=== PATIENT | male | born 1965 | race Caucasian/White ===

== ENCOUNTER 2020-08-16 10:44 | Emergency (ER) | payer MEDICARE, SELFPAY ==
--- NOTE | 2020-08-16 11:53 | ED.GENADULT ---
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 Onset (ago): day(s) Relieving factors: none Treatments prior to arrival: none Related Data Home Medications Medication Instructions Recorded Confirmed albuterol sulfate 90 mcg/actuation 2 puff INHALATION .4 times a day 07/13/20 07/18/20 aerosol inhaler PRN g hydroxyzine HCl 50 mg tablet 100 mg PO BEDTIME 07/13/20 07/18/20 ipratropium 0.5 mg-albuterol 3 mg ml INHALATION 07/13/20 07/18/20 (2.5 mg base)/3 mL nebulization soln topiramate 50 mg tablet 50 mg PO BEDTIME 07/13/20 07/18/20 venlafaxine 75 mg tablet 75 mg PO DAILY 07/13/20 07/18/20 trazodone 150 mg tablet mg PO BEDTIME tab 07/18/20 07/18/20 Previous Rx's Medication Instructions Recorded baclofen 20 mg tablet 20 mg PO TID PRN 30 Days #90 tab 06/30/20 gabapentin 100 mg capsule 100 mg PO TID #90 cap 06/30/20 azithromycin 250 mg tablet See Rx Instructions PO .COMPLEX #6 07/13/20 tab clonidine HCl 0.2 mg tablet 0.2 mg PO BID PRN #60 tab 07/21/20 oxycodone-acetaminophen 5 mg-325 1 tab PO BID PRN 28 Days #56 tab 07/21/20 mg tablet theophylline 300 mg 300 mg PO Q12H #60 ea 07/28/20 tablet,extended release,12 hr Allergies Allergy/AdvReac Type Severity Reaction Status Date / Time bacitracin [Bacitracin] Allergy Unknown REDNESS Verified 07/18/20 17:48 AND RASH lithium [[place]] Allergy Unknown UNKNOWN Verified 07/18/20 17:48 Sulfa (Sulfonamide Allergy Unknown Unknown Verified 07/18/20 17:48 Antibiotics) Review of Systems Review of Systems: Constitutional: No Weight loss, No Fever, No Chills, No Night Sweats, No Fatigue, No Malaise ENT/Mouth: No Hearing loss, No Ear Pain, No Nasal Congestion, No Sinus Pain, No Hoarseness, No sore throat, No Rhinorrhea, No Swallowing Difficulty Eyes: No Eye Pain, No Swelling, No Redness, No Foreign Body, No Discharge, No Vision Changes Cardiovascular: No Chest Pain, No SOB, No Dyspnea on Exertion, No Orthopnea, No Edema, No Palpitations Respiratory: No Cough, No Sputum, No Wheezing, No Smoke Exposure, No Dyspnea Gastrointestinal: No Nausea, No Vomiting, No Diarrhea, No Constipation, No abdominal Pain, No Hematochezia, No Melena Genitourinary:No Urinary Incontinence, No Urgency, No Flank Pain, No Urinary Flow Changes, No Hesitancy Musculoskeletal: No joint pain, No Myalgias, No Joint Swelling Skin: No Skin Lesions, No rash Neuro: No Weakness, No Numbness, No Paresthesias, No Loss of Consciousness, No Dizziness, No Headache Heme/Lymph: No Bruising, No Bleeding,No Lymphadenopathy Endocrine: No Polyuria, No Polydipsia, No Temperature Intolerance Yes all other systems are reviewed and are negative [facility] Past Medical History Medical History Anxiety COPD exacerbation Depression Essential tremor Insomnia Lumbar degenerative disc disease Migraine Mixed hyperlipidemia Obesity (BMI 30-39.9) Obstructive sleep apnea Smoker Surgical History No pertinent past surgical history Family History Family History Father No problems noted. Mother No problems noted. Social History Social History (Updated 07/18/20 @ 17:49 by Imtiaz Saucedo MD) Smoking Status: Current every day smoker Tobacco Type: Cigarette Cigarettes Per Day: 10 Advance Directives: No Advance Directives Information Provided: No Physical Exam Vital Signs: Vital Signs: Reviewed Const: General: cooperative and healthy appearing; No acute distress or intoxicated appearing Nutritional Appearance: average body habitus Orientation/consciousness: patient oriented x3 HENMT: Head: Yes normal to inspection Ears: hearing grossly normal bilaterally Eyes: General: appearance normal, both eyes and all related structures Visual Bhatti: normal visual bhatti by confrontation Neck: Neck: Yes normal visual inspection and No tender Thyroid: Thyroid normal Chest: Chest palpation & inspection: normal inspection of the chest Resp: Effort & Inspection: normal respiratory effort Cardio: Jugular venous distension: no JVD Skin: General skin exam: no rashes or lesions noted Neuro: General: patient oriented x3 Extrem: General: Yes normal to inspection Course Course Course Narrative: COVID-19 test done. Clear precaution follow-up instructions provided. Verbalized understanding. Stable for discharge Discharge Plan Discharge Clinical Impression: Encounter for laboratory testing for COVID-19 virus Patient Disposition: Home, Self-Care Instructions: Normal Exam (ED) Additional Instructions: We have tested for COVID-19 this test may take up to 3-5 days result Follow home instructions reviewed Social distancing Self-isolation Return instructions provided Thank you Prescriptions: No Action baclofen 20 mg tablet 20 mg PO TID PRN (Reason: muscle spasm) 30 Days Qty: 90 RF: 3 gabapentin 100 mg capsule 100 mg PO TID Qty: 90 RF: 0 oxycodone-acetaminophen 5-325 mg tablet 1 tab PO BID PRN (Reason: pain) 28 Days Qty: 56 RF: 0 clonidine HCl 0.2 mg tablet 0.2 mg PO BID PRN (Reason: for anxiety) Qty: 60 RF: 0 theophylline 300 mg tablet extended release 12 hr 300 mg PO Q12H Qty: 60 RF: 0 hydroxyzine HCl 50 mg tablet 100 mg PO BEDTIME RF: 0 topiramate 50 mg tablet 50 mg PO BEDTIME RF: 0 ipratropium-albuterol 0.5 mg-3 mg(2.5 mg base)/3 mL solution for nebulization inhalation RF: 0 albuterol sulfate [Ventolin HFA] 90 mcg/actuation HFA aerosol inhaler 2 puff inhalation .4 times a day PRNRF: 0 venlafaxine 75 mg tablet 75 mg PO DAILY RF: 0 azithromycin 250 mg tablet See Rx Instructions PO .COMPLEX Qty: 6 RF: 0 trazodone 150 mg tablet PO BEDTIME RF: 0 Referrals: Imtiaz Saucedo MD [Primary Care Provider] - 1 week (As needed)
[2020-08-16 11:57] VITALS: BP 122/66; PULSE 85; RESP 20; TEMP 36.7; O2SAT 93; BMI 36.6
== END 2020-08-16 12:16 | disposition home or self-care (01) ==
PROVIDERS: Nurse Practitioner Primary Care; Emergency Provider Internal Medicine; PCP Internal Medicine
DX: Z20.828 Contact with and (suspected) exposure to other viral communicable diseases (principal); F17.210 Nicotine dependence, cigarettes, uncomplicated; Z71.6 Tobacco abuse counseling; Z79.899 Other long term (current) drug therapy
CPT/HCPCS: 99283; U0003

== ENCOUNTER 2020-10-01 08:38 | Outpatient (REF) | payer MEDICARE, SELFPAY ==
[2020-10-01 11:22] LABS: MANUAL DIFF FLAG NO
[2020-10-01 11:52] LABS: Basophils Absolute Auto 0.1 X10*3/uL (0.0-0.2); Basophils Percent Auto 0.6 % (0-2); Eosinophils Absolute Auto 0.3 X10*3/uL (0.0-0.4); Eosinophils Percent Auto 2.4 % (0-4); Hematocrit 49.2 % (42-52); Hemoglobin 16.2 g/dl (14.0-18.0); Imm Gran Abs Auto 0.05 X10*3/uL (0.00-0.03); Imm Gran Pct Auto 0.5 % (0.0-0.4); Lymphocytes Absolute Auto 4.4 X10*3/uL (1.2-4.9); Lymphocytes Percent Auto 39.8 % (20-40); Mean Corpuscular HGB Conc 32.9 g/dl (31.0-36.0); Mean Corpuscular Hemoglobin 30.6 pg (27.0-33.0); Mean Platelet Volume 10.6 fL (9.4-12.4); Monocytes Absolute Auto 0.7 X10*3/uL (0.1-1.2); Monocytes Percent Auto 6.4 % (2-11); Neutrophils Absolute Auto 5.6 X10*3/uL (2.0-8.3); Neutrophils Percent Auto 50.3 % (45-73); Platelet Count 317 X10*3/uL (160-400); Red Blood Count 5.29 X10*6/uL (4.60-5.80); Red Cell Distribution Width 13.9 % (11.0-16.0)
[2020-10-01 12:20] LABS: Alanine Aminotransferase 16 U/L (0-40); Albumin Level 4.6 g/dL (3.5-5.0); Alkaline Phosphatase 86 U/L (39-117); Anion Gap 13 (12-20); Aspartate Amino Transferase 12 U/L (5-37); Bilirubin Total 0.4 mg/dL (0.0-1.0); Blood Urea Nitrogen 12 mg/dL (9-16); Calcium 9.2 mg/dL (8.4-10.2); Carbon Dioxide 28 mmol/L (22-29); Chloride 105 mmol/L (96-108); Cholesterol 251 mg/dL; Estimated Glomerular Filt Rate > 60; Glucose Fasting 134 mg/dL (60-99); HDL Cholesterol 33 mg/dL; LDL Cholesterol Calculated 168 mg/dl; Potassium 4.5 mmol/l (3.3-5.1); Sodium 141 mmol/L (135-145); Total Protein 7.4 g/dL (6.5-8.0); Triglycerides 252 mg/dL
[2020-10-01 12:26] LABS: TSH reflex Free T4 0.84 mIU/mL (0.32-4.0)
[2020-10-01 14:07] LABS: Glucose Urine UA NEG (NEG); Leukocyte Esterase Urine NEG (NEG); Nitrite Urine NEG (NEG); PH 5.5 (5.0-8.0); Urine Blood NEG (NEG); Urine Ketones NEG (NEG); Urine Protein NEG (NEG-TRACE)
[2020-10-01 14:20] LABS: Appearance Urine CLEAR; Color Urine YELLOW
== END 2020-10-01 08:39 | disposition home or self-care (01) ==
LOC: HO.HMGCLDS 08:38
PROVIDERS: PCP Internal Medicine; Visit Provider Internal Medicine
DX: J44.1 Chronic obstructive pulmonary disease with (acute) exacerbation (principal); F17.200 Nicotine dependence, unspecified, uncomplicated; E78.2 Mixed hyperlipidemia; E66.9 Obesity, unspecified; M51.36 Other intervertebral disc degeneration, lumbar region
CPT/HCPCS: 36415; 80053; 80061; 81003; 84443; 85025

== ENCOUNTER 2021-11-29 12:13 | Outpatient (REF) | payer MEDICARE, SELFPAY ==
--- NOTE | ~2021-11-29 | XR_ITS ---
EXAMINATION: XR CHEST CLINICAL INFORMATION: COPD. COMPARISON: None TECHNIQUE: 2 views of the chest were obtained. FINDINGS: The lungs are well-expanded with patchy density in the left lung base retrocardiac area suggestive of infiltrate and/or atelectasis. Mild blunting of left CP angle. Rest of lungs are clear. The heart size and progress clarities normal. No gross bony abnormality seen. XR/XR chest 2V IMPRESSION: Patchy opacity left lung base likely infiltrate or atelectasis. Mild blunting of left CP angle question pleural thickening or effusion.
== END 2021-11-29 12:14 | disposition home or self-care (01) ==
LOC: HO.HMGCX 12:13
PROVIDERS: Visit Provider Internal Medicine
DX: J44.1 Chronic obstructive pulmonary disease with (acute) exacerbation (principal)
CPT/HCPCS: 71046

== ENCOUNTER → 2022-04-03 15:11 | Outpatient (BNVA) | payer MEDICARE, SELFPAY | PROVIDERS: PCP Internal Medicine; Visit Provider Internal Medicine | DX: J44.9 Chronic obstructive pulmonary disease, unspecified (principal); E66.9 Obesity, unspecified; Z68.35 Body mass index [BMI] 35.0-35.9, adult; G47.33 Obstructive sleep apnea (adult) (pediatric); F51.01 Primary insomnia; F17.210 Nicotine dependence, cigarettes, uncomplicated; Z79.899 Other long term (current) drug therapy | CPT/HCPCS: 99202 ==

== ENCOUNTER 2022-05-25 14:09 | Emergency (ER) | payer MEDICARE, OTHER, SELFPAY ==
--- NOTE | ~2022-05-25 | XR_ITS ---
EXAMINATION: XR CHEST CLINICAL INFORMATION: Chest pain. COMPARISON: 11/29/2021 chest radiographs. TECHNIQUE: 2 views of the chest were obtained. FINDINGS: There is generalized hyperinflation. The lungs are clear. There are no pleural effusions. The heart and mediastinal structures are unremarkable. XR/XR chest 2V IMPRESSION: Generalized hyperinflation is nonspecific, but can be seen with COPD. No acute cardiopulmonary process. Previously seen left basilar findings have resolved.
[2022-05-25 14:41] VITALS: BP 139/82; PULSE 80; RESP 16; TEMP 37.1; O2SAT 88; BMI 34.9
[2022-05-25 14:43] VITALS: O2SAT 94
--- NOTE | 2022-05-25 14:44 | ECG_ITS ---
Test Reason : sob Blood Pressure : / mmHG Vent. Rate : 081 BPM Atrial Rate : 081 BPM P-R Int : 190 ms QRS Dur : 092 ms QT Int : 386 ms P-R-T Axes : 076 107 033 degrees QTc Int : 448 ms Normal sinus rhythm Rightward axis Borderline ECG When compared with ECG of 13-JUN-2017 18:43, Heart rate has decreased Referred By: Generic ED Physician Electronically Signed By:SHERIF MUJICA
[2022-05-25 15:03] LABS: MANUAL DIFF FLAG NO
[2022-05-25 15:07] LABS: Basophils Absolute Auto 0.1 X10*3/uL (0.0-0.2); Basophils Percent Auto 0.7 % (0-2); Eosinophils Absolute Auto 0.3 X10*3/uL (0.0-0.4); Eosinophils Percent Auto 2.4 % (0-4); Hemoglobin 18.6 g/dl (14.0-18.0); Imm Gran Abs Auto 0.03 X10*3/uL (0.00-0.03); Imm Gran Pct Auto 0.3 % (0.0-0.4); Lymphocytes Absolute Auto 3.6 X10*3/uL (1.2-4.9); Lymphocytes Percent Auto 34.7 % (20-40); Mean Corpuscular Hemoglobin 30.8 pg (27.0-33.0); Mean Corpuscular Volume 93.2 fL (80.0-98.0); Mean Platelet Volume 9.4 fL (9.4-12.4); Monocytes Absolute Auto 0.6 X10*3/uL (0.1-1.2); Monocytes Percent Auto 5.8 % (2-11); Neutrophils Absolute Auto 5.9 x10*3/uL (2.0-8.3); Neutrophils Percent Auto 56.1 % (45-73); Platelet Count 207 X10*3/uL (160-400); Red Blood Count 6.04 X10*6/uL (4.60-5.80); Red Cell Distribution Width 14.6 % (11.0-16.0); White Blood Count 10.5 X10*3/uL (4.8-10.8)
[2022-05-25 15:16] LABS: Hematocrit 56.3 % (42.0-52.0)
[2022-05-25 15:19] LABS: Anion Gap 16 (12-20); Blood Urea Nitrogen 13 mg/dL (9-16); Calcium 8.7 mg/dL (8.4-10.2); Carbon Dioxide 25 mmol/L (22-29); Chloride 103 mmol/L (96-108); Creatinine Clr Calc Pharmacy 129.9; Estimated Glomerular Filt Rate > 60; Glucose Random 115 mg/dL (60-115); Potassium 4.5 mmol/L (3.3-5.1); Sodium 139 mmol/L (135-145)
[2022-05-25 15:25] LABS: Troponin-I High Sensitivity 4.2 ng/L (<3.5-35.0)
== END 2022-05-25 21:28 | disposition left against medical advice (07) ==
PROVIDERS: Emergency Provider Emergency Medicine; PCP Internal Medicine
DX: J44.9 Chronic obstructive pulmonary disease, unspecified (principal); R06.02 Shortness of breath; Z79.899 Other long term (current) drug therapy
CPT/HCPCS: 36415; 71046; 80048; 84484; 85025; 93005; 99282; 99283

== ENCOUNTER → 2022-06-07 09:56 | Outpatient (BNVA) | payer MEDICARE, SELFPAY | PROVIDERS: PCP Internal Medicine; Visit Provider Internal Medicine | DX: J44.9 Chronic obstructive pulmonary disease, unspecified (principal); G47.34 Idiopathic sleep related nonobstructive alveolar hypoventilation; G47.33 Obstructive sleep apnea (adult) (pediatric); J30.9 Allergic rhinitis, unspecified; E66.9 Obesity, unspecified; D75.1 Secondary polycythemia; F17.210 Nicotine dependence, cigarettes, uncomplicated; Z79.899 Other long term (current) drug therapy; Z99.81 Dependence on supplemental oxygen | CPT/HCPCS: 99212 ==

== ENCOUNTER 2022-06-12 08:37 | Outpatient (REF) | payer MEDICARE, SELFPAY ==
--- NOTE | 2022-06-12 17:26 | PFT_ITS ---
FLOWS: FEV1 28% of predicted at 1.07 L. FVC 60% of predicted at 3.01 L. FEV1 to FVC ratio of 0.36. Positive bronchodilator response. LUNG VOLUMES: Total lung capacity 85% of predicted at 6.05 L. Residual volume 187% of predicted at 4.10 L. Slow vital capacity 39% of predicted at 1.95 L. Expiratory reserve volume 33% of predicted at 0.50 L. Diffusion capacity is moderately decreased. IMPRESSION: A very severe obstructive ventilatory defect with positive bronchodilator response. Increased residual volume suggests air trapping. Decreased expiratory reserve volume suggests extrathoracic restriction likely secondary to abdominal obesity. Decreased diffusion capacity suggests emphysema. MD LISA Campuzano/MODL / [id number]
== END 2022-06-12 08:38 | disposition home or self-care (01) ==
LOC: HO.RESP 08:37
PROVIDERS: PCP Internal Medicine; Visit Provider Internal Medicine
DX: R06.00 Dyspnea, unspecified (principal); J44.9 Chronic obstructive pulmonary disease, unspecified; E66.9 Obesity, unspecified; F17.200 Nicotine dependence, unspecified, uncomplicated
CPT/HCPCS: 94060; 94727; 94729

== ENCOUNTER → 2022-07-31 10:45 | Outpatient (BNVA) | payer MEDICARE, SELFPAY | PROVIDERS: PCP Internal Medicine; Visit Provider Internal Medicine | DX: J44.9 Chronic obstructive pulmonary disease, unspecified (principal); G47.34 Idiopathic sleep related nonobstructive alveolar hypoventilation; E66.9 Obesity, unspecified; G47.33 Obstructive sleep apnea (adult) (pediatric); F17.210 Nicotine dependence, cigarettes, uncomplicated; Z68.36 Body mass index [BMI] 36.0-36.9, adult | CPT/HCPCS: 99212 ==

== ENCOUNTER → 2022-10-02 10:50 | Outpatient (BNVA) | payer MEDICARE, SELFPAY | PROVIDERS: PCP Internal Medicine; Visit Provider Internal Medicine | DX: J44.9 Chronic obstructive pulmonary disease, unspecified (principal); G47.34 Idiopathic sleep related nonobstructive alveolar hypoventilation; G47.33 Obstructive sleep apnea (adult) (pediatric); E66.9 Obesity, unspecified; F17.210 Nicotine dependence, cigarettes, uncomplicated; Z68.36 Body mass index [BMI] 36.0-36.9, adult | CPT/HCPCS: 99212 ==

== ENCOUNTER 2022-10-20 09:47 | Emergency (ER) | payer MEDICARE, SELFPAY ==
[2022-10-20] VITALS (8 sets, daily range): BP systolic 119–162; BP diastolic 72–93; PULSE 74–87; RESP 17–19; TEMP 36.6–37.1; O2SAT 92–99; BMI 35.9
--- NOTE | ~2022-10-20 | XR_ITS ---
EXAMINATION: XR CHEST CLINICAL INFORMATION: Shortness of breath, chest pain, cough COMPARISON: Chest radiographs 05/25/2022, 11/29/2021 TECHNIQUE: 2 views of the chest were obtained. FINDINGS: There is hyperinflation/COPD. No lobar or segmental airspace consolidation or groundglass opacity or effusion. The heart is normal in size. The vascularity is normal. The hilar and mediastinal contours and visualized bony structures are stable. XR/XR chest 2V IMPRESSION: Hyperinflation/COPD. No acute intrathoracic disease.
--- NOTE | 2022-10-20 12:08 | ED_ITS ---
HPI - SOB/Dyspnea General Chief Complaint: Upper Respiratory Symptoms Stated Complaint: COPD exacerbation Time Seen by Provider: 10/20/22 11:28 Source: patient Mode of arrival: ambulatory Limitations: no limitations History of Present Illness HPI Narrative: Patient is a 57-year-old male presents to the emergency department for evaluation of COPD exacerbation past few days, increased sputum, no change in color, increased shortness of breath. Baseline 2-3 L via nasal cannula. Went to [facility] urgent care today, referred to the emergency department for further evaluation. Denies fevers, chills, dizziness, sore throat, chest pain, nausea, vomiting, abdominal pain. Related Data Previous Rx's Medication Instructions Recorded baclofen 20 mg tablet 20 mg PO TID PRN muscle spasm 30 06/21/22 days #90 tabs hydroxyzine HCl 50 mg tablet 100 mg PO BEDTIME #60 tabs 07/25/22 topiramate 50 mg tablet 50 mg PO BEDTIME #90 tabs 07/25/22 gabapentin 300 mg capsule 300 mg PO TID #90 caps 08/22/22 trazodone 150 mg tablet 450 mg PO BEDTIME #270 tabs 09/05/22 Breo Ellipta 200 mcg-25 mcg/dose 1 inh inhalation DAILY #60 ea 09/15/22 powder for inhalation (fluticasone furoate-vilanterol) albuterol sulfate 90 mcg/actuation 2 puff inhalation .4 times a day 09/15/22 aerosol inhaler (Ventolin HFA) PRN shortness of breath or wheezing #8.5 grams atorvastatin 10 mg tablet 10 mg PO BEDTIME 90 days #90 tabs 09/15/22 ipratropium 0.5 mg-albuterol 3 mg 3 ml inhalation Q6-8H PRN 09/15/22 (2.5 mg base)/3 mL nebulization shortness of breath or wheezing 30 soln days #180 mL venlafaxine 75 mg tablet 150 mg PO DAILY 30 days #60 tabs 09/15/22 clonidine HCl 0.2 mg tablet 0.2 mg PO BID PRN for anxiety #60 09/22/22 tabs theophylline 300 mg 300 mg PO Q12H #60 tabs 09/22/22 tablet,extended release,12 hr clonazepam 1 mg tablet 1 mg PO TID PRN anxiety 30 days 09/26/22 #90 tabs doxycycline hyclate 100 mg capsule 100 mg PO BID #14 caps 10/20/22 prednisone 20 mg tablet 40 mg PO BID #8 tabs 10/20/22 Allergies Allergy/AdvReac Type Severity Reaction Status Date / Time bacitracin [Bacitracin] Allergy Unknown REDNESS Verified 10/02/22 11:30 AND RASH lithium [[place]] Allergy Unknown UNKNOWN Verified 10/02/22 11:30 Sulfa (Sulfonamide Allergy Unknown Unknown Verified 10/02/22 11:30 Antibiotics) Review of Systems Review of Systems: Constitutional: No fever. No chills. No weakness. No fatigue. ENT/ Mouth: No Ear Pain, positive Nasal Congestion, no sore throat, No Rhinorrhea, No Swallowing Difficulty Skin: No rash or itching. Cardiovascular: No chest pain. No palpitations. Respiratory: Positive shortness of breath. Positive cough. Positive sputum production. Gastrointestinal: No nausea. No vomiting. No diarrhea. No abdominal pain. Genitourinary: No burning micturition. No urinary frequency. Neurologic: No headache. No dizziness. No syncope. No numbness or tingling in the extremities. Musculoskeletal: No muscle pain. No back pain. No joint pain or stiffness. Yes all other systems are reviewed and are negative PMFSH Past Medical History Attestation statement: The following information was validated with the patient. Source: old records reviewed Medical History Allergic rhinitis Anxiety COPD (chronic obstructive pulmonary disease) COPD exacerbation Depression Essential tremor Impaired fasting glucose Insomnia Lumbar degenerative disc disease Migraine Mixed hyperlipidemia Nocturnal hypoxemia Obesity (BMI 30-39.9) Obstructive sleep apnea Polycythemia Smoker Surgical History No pertinent past surgical history Family History Family History Father No problems noted. Mother No problems noted. Social History Social History Housing: Apartment Alcohol intake: never Patient Tobacco Use Status: Current everyday Tobacco user Cigarettes Per Day: 20 Smoked in Last 30 Days: Yes e-Cigarette/Vaping Use: Never Used Second Hand Smoke Exposure: Yes Use of substances other than those prescribed or required for medical reasons: No Advance Directives: No Advance Directives Information Provided: Yes service: No Current occupational status: disabled Cognitive needs: No Hearing needs: No Vision needs: No Physical Exam Vital Signs: Vital Signs: Last Vital Signs Temp 98.3 F 10/20/22 11:51 Pulse 83 10/20/22 15:06 Resp 18 10/20/22 15:06 BP 132/80 10/20/22 15:06 Pulse Ox 98 10/20/22 15:06 O2 Del Method 10/20/22 15:06 O2 Flow Rate 2.5 10/20/22 15:06 Oxygen Flow Rate 2.5 10/20/22 10:58 BMI result Body Mass Index 35.9 Appearance: Alert.?Oriented to person, place and time. No acute distress.?Normal affect. Eyes: Pupils equal, round and reactive to light.? ENT: TM normal bilaterally. Pharynx normal.?? Neck: Normal inspection.? Neck supple.??No cervical adenopathy CVS: Heart sounds normal. Normal heart rate and rhythm.? Pulses normal.?? Respiratory: No respiratory distress.? Lung sounds type bilaterally, with expiratory wheezing. Abdomen: Soft and non-tender. Normoactive bowel sounds. Skin: Skin warm and dry.? Normal skin color.? ? Extremities: No lower extremity edema.? Neuro: Moves all extremities spontaneously. Sensation intact bilaterally. No motor deficits. Ambulates with normal steady gait. Course Reevaluation(s) Reevaluation #1: Patient ambulatory without oxygen, noted to be in no distress. No increased work of breathing. O2 saturations have remained at 93% on 2 L while at rest. Per patient his baseline is 88-92%. CBC reveals a mild leukocytosis without shift, mild hypernatremia 147, I suspect this is due to mild dehydration, we discussed adequate fluid intake. COVID-19/influenza testing is negative. Improvement in lung sounds after DuoNeb nebulizer and Solu-Medrol. Chest x-ray without any acute cardiopulmonary process, not appear consistent with pneumonia at this time. Symptom etiology most consistent with COPD exacerbation, I discussed these findings with patient, patient to be discharged home, will send prescription for oral prednisone and antibiotic to patient's pharmacy. We discussed worrisome signs and symptoms that would warrant re-evaluation in the emergency department. All questions were answered. Ambulatory with steady gait, discharged home with son who is at bedside. Medications Administered Discontinued Medications Generic Name Dose Route Start Last Admin Trade Name Mell PRN Reason Stop Dose Admin Albuterol Sulfate 7.5 mg 10/20/22 12:58 10/20/22 13:19 Albuterol Sulfate (0.083%) 2.5 Mg/3 Ml Vial.Neb INHALE 10/20/22 12:59 7.5 mg ONCE ONE Administration Albuterol/Ipratropium 3 ml 10/20/22 12:58 10/20/22 13:15 Albuterol/Iprat 2.5/0.5mg 3 Ml Ampul.Neb INHALE 10/20/22 12:59 3 ml ONCE ONE Administration Methylprednisolone Sodium Succinate 125 mg 10/20/22 12:58 10/20/22 15:05 Methylprednisolone Sod Succ 125 Mg/2 Ml Vial IVPUSH 10/20/22 12:59 125 mg ONCE ONE Administration Medical Decision Making Medical Decision Making [facility] Narrative: Patient is a 57-year-old male with past medical history of anxiety, COPD, diabetes, hyperlipidemia, obstructive sleep apnea on CPAP, polycythemia presented to emergency department for evaluation of shortness of breath and incr eased sputum production. Reports symptoms unrelieved with home nebulizer. At the time my examination is overall well appearing, maintaining O2 saturation on baseline supplemental O2 via nasal cannula. Speaking clear full sentences. He was noted to ambulate to the bathroom and back to his room without any complication or significant distress. Lung sounds are significantly tight bilaterally with faint expiratory wheezing patient will receive DuoNeb updrafts, Solu-Medrol IV, CBC, CMP, chest x-ray, viral testing, EKG, troponin. Differential Diagnosis Differential Diagnoses: The differential diagnosis associated with the presentation includes (COPD exacerbation, pneumonia, pulmonary embolism, ACS, viral upper respiratory infection, pleural effusion, pneumothorax) Lab Data [facility] Lab Attestation statement: I reviewed the patient's lab results. 10/20/22 13:53 10/20/22 13:53 Labs: Lab Results 10/20/22 10/20/22 10/20/22 Range/Units 13:53 13:53 13:53 WBC 13.2 H (4.8-10.8) X10*3/uL RBC 5.32 (4.60-5.80) X10*6/uL Hgb 16.4 (14.0-18.0) g/dl Hct 51.8 (42.0-52.0) % MCV 97.4 (80.0-98.0) fL MCH 30.8 (27.0-33.0) pg MCHC 31.7 (31.0-36.0) g/dl RDW 13.5 (11.0-16.0) % Plt Count 214 (160-400) X10*3/uL MPV 9.4 (9.4-12.4) fL Immature Gran % (Auto) 0.4 (0.0-0.4) % Neut % (Auto) 51.7 (45-73) % Lymph % (Auto) 37.9 (20-40) % [place] % (Auto) 8.0 (2-11) % Eos % (Auto) 1.5 (0-4) % Baso % (Auto) 0.5 (0-2) % Lymph # (Auto) 5.0 H (1.2-4.9) X10*3/uL [place] # (Auto) 1.1 (0.1-1.2) X10*3/uL Eos # (Auto) 0.2 (0.0-0.4) X10*3/uL Baso # (Auto) 0.1 (0.0-0.2) X10*3/uL Abs Immat Gran (auto) 0.05 H (0.00-0.03) X10*3/uL Absolute Neuts (auto) 6.8 (2.0-8.3) x10*3/uL Absolute Nucleated RBC 0.000 (0.0-0.012) X10*3/uL Nucleated RBC % (auto) 0.0 (0.0-0.2) /100WBC Sodium 147 H (135-145) mmol/L Potassium 3.8 (3.3-5.1) mmol/L Chloride 100 (96-108) mmol/L Carbon Dioxide 38 H (22-29) mmol/L Anion Gap 13 (12-20) BUN 11 (9-16) mg/dL Creatinine 0.81 (0.5-1.4) mg/dL Estim Creat Clear Calc 128.4 Estimated GFR > 60 Random Glucose 136 H (60-115) mg/dL Calcium 8.8 (8.4-10.2) mg/dL Magnesium (1.6-2.6) mg/dL Total Bilirubin 0.3 (0.0-1.0) mg/dL AST 12 (5-37) U/L ALT 20 (0-40) U/L Alkaline Phosphatase 88 (39-117) U/L Troponin I High Sens (<3.5-35.0) ng/L Total Protein 6.7 (6.5-8.0) g/dL Albumin 3.9 (3.5-5.0) g/dL COVID-19 ([facility]) (Negative) COVID-19 Clin Com Influenza Type A ([place]) Negative (Negative) Influenza Type B ([place]) Negative (Negative) Influenza A & B Note See Note 10/20/22 10/20/22 10/20/22 Range/Units 13:53 13:53 13:53 WBC (4.8-10.8) X10*3/uL RBC (4.60-5.80) X10*6/uL Hgb (14.0-18.0) g/dl Hct (42.0-52.0) % MCV (80.0-98.0) fL MCH (27.0-33.0) pg MCHC (31.0-36.0) g/dl RDW (11.0-16.0) % Plt Count (160-400) X10*3/uL MPV (9.4-12.4) fL Immature Gran % (Auto) (0.0-0.4) % Neut % (Auto) (45-73) % Lymph % (Auto) (20-40) % [place] % (Auto) (2-11) % Eos % (Auto) (0-4) % Baso % (Auto) (0-2) % Lymph # (Auto) (1.2-4.9) X10*3/uL [place] # (Auto) (0.1-1.2) X10*3/uL Eos # (Auto) (0.0-0.4) X10*3/uL Baso # (Auto) (0.0-0.2) X10*3/uL Abs Immat Gran (auto) (0.00-0.03) X10*3/uL Absolute Neuts (auto) (2.0-8.3) x10*3/uL Absolute Nucleated RBC (0.0-0.012) X10*3/uL Nucleated RBC % (auto) (0.0-0.2) /100WBC Sodium (135-145) mmol/L Potassium (3.3-5.1) mmol/L Chloride (96-108) mmol/L Carbon Dioxide (22-29) mmol/L Anion Gap (12-20) BUN (9-16) mg/dL Creatinine (0.5-1.4) mg/dL Estim Creat Clear Calc Estimated GFR Random Glucose (60-115) mg/dL Calcium (8.4-10.2) mg/dL Magnesium 2.1 (1.6-2.6) mg/dL Total Bilirubin (0.0-1.0) mg/dL AST (5-37) U/L ALT (0-40) U/L Alkaline Phosphatase (39-117) U/L Troponin I High Sens 5.3 (<3.5-35.0) ng/L Total Protein (6.5-8.0) g/dL Albumin (3.5-5.0) g/dL COVID-19 ([facility]) Negative (Negative) COVID-19 Clin Com See Note Influenza Type A ([place]) (Negative) Influenza Type B ([place]) (Negative) Influenza A & B Note Independent Interpretation I performed an independent interpretation of an: Plain X-Ray (I personally interpreted chest x-ray and agree with radiologist impression) Radiology Impression Discussion of test interpretation with radiology: I have reviewed the radiologist's reading. Radiologist Impression: XR/XR chest 2V IMPRESSION: Hyperinflation/COPD. No acute intrathoracic disease. Independent Historian Clinical information obtained from an independent historian. History obtained from or confirmed by: Other (Daughter is at bed side and confirms history) Prescription Management I considered prescription management with: Antibiotic Chronic Conditions Patient?s care impacted by: Other (COPD) Discharge Plan Discharge Clinical Impression: COPD exacerbation Patient Disposition: Home, Self-Care Instructions: COPD (Chronic Obstructive Pulmonary Disease) (ED) Additional Instructions: As discussed, your x-ray and blood work is overall normal today, testing for COVID and flu were negative. Your symptoms are most consistent with a exacerbation of your COPD. A prescription for steroids was sent to your pharmacy, prednisone, began taking this tomorrow. A prescription for antibiotic, doxycycline, was sent to your pharmacy, please complete this entire course. Continue using your nebulizer at home. Your O2 saturation remained at baseline while in the emergency department, you were able to ambulate without difficulty breathing, and felt comfortable with plan of care for discharge home. You should follow-up with your primary care provider next week. You may return to emergency department with any new or worsening symptoms or concerns. Prescriptions: New doxycycline hyclate 100 mg capsule 100 mg PO BID Qty: 14 0RF prednisone 20 mg tablet 40 mg PO BID Qty: 8 0RF No Action baclofen 20 mg tablet 20 mg PO TID PRN (Reason: muscle spasm) 30 Days Qty: 90 3RF topiramate 50 mg tablet 50 mg PO BEDTIME Qty: 90 0RF hydroxyzine HCl 50 mg tablet 100 mg PO BEDTIME Qty: 60 2RF gabapentin 300 mg capsule 300 mg PO TID Qty: 90 1RF trazodone 150 mg tablet 450 mg PO BEDTIME Qty: 270 0RF clonidine HCl 0.2 mg tablet 0.2 mg PO BID PRN (Reason: for anxiety) Qty: 60 3RF theophylline 300 mg tablet extended release 12 hr 300 mg PO Q12H Qty: 60 3RF clonazepam 1 mg tablet 1 mg PO TID PRN (Reason: anxiety) 30 Days Qty: 90 0RF venlafaxine 75 mg tablet 150 mg PO DAILY 30 Days Qty: 60 3RF atorvastatin 10 mg tablet 10 mg PO BEDTIME 90 Days Qty: 90 1RF albuterol sulfate [Ventolin HFA] 90 mcg/actuation HFA aerosol inhaler 2 puff inhalation .4 times a day PRN (Reason: shortness of breath or wheezing) Qty: 8.5 5RF fluticasone furoate-vilanterol [Breo Ellipta] 200-25 mcg/dose blister with device 1 inh inhalation DAILY Qty: 60 5RF ipratropium-albuterol 0.5 mg-3 mg(2.5 mg base)/3 mL solution for nebulization 3 ml inhalation Q6-8H PRN (Reason: shortness of breath or wheezing) 30 Days Qty: 180 1RF Referrals: Imtiaz Saucedo MD [Primary Care Provider] - Interventions: ED Discharge Assessment Last Done: 10/20/22 17:17 Discharge Date/Time: 10/20/22 17:18
--- NOTE | 2022-10-20 13:02 | ECG_ITS ---
Test Reason : sob Blood Pressure : / mmHG Vent. Rate : 080 BPM Atrial Rate : 080 BPM P-R Int : 192 ms QRS Dur : 094 ms QT Int : 380 ms P-R-T Axes : 077 100 066 degrees QTc Int : 438 ms Poor data quality Normal sinus rhythm Rightward axis When compared with ECG of 25-MAY-2022 14:44, Poor data quality in current ECG precludes serial comparison Referred By: Tamra Schutlz Electronically Signed By:Hermilo Jackson
[2022-10-20] MEDS: Albuterol/Iprat 2.5/0.5MG 3 ML AMPUL.NEB INHALE (13:15)
[2022-10-20] MEDS: Albuterol Sulfate (0.083%) 2.5 MG/3 ML VIAL.NEB 7.5 MG INHALE (13:19)
[2022-10-20 13:59] LABS: MANUAL DIFF FLAG NO
[2022-10-20 14:01] LABS: Basophils Absolute Auto 0.1 X10*3/uL (0.0-0.2); Basophils Percent Auto 0.5 % (0-2); Eosinophils Absolute Auto 0.2 X10*3/uL (0.0-0.4); Eosinophils Percent Auto 1.5 % (0-4); Hematocrit 51.8 % (42.0-52.0); Hemoglobin 16.4 g/dl (14.0-18.0); Imm Gran Abs Auto 0.05 X10*3/uL (0.00-0.03); Imm Gran Pct Auto 0.4 % (0.0-0.4); Lymphocytes Percent Auto 37.9 % (20-40); Mean Corpuscular HGB Conc 31.7 g/dl (31.0-36.0); Mean Corpuscular Hemoglobin 30.8 pg (27.0-33.0); Mean Corpuscular Volume 97.4 fL (80.0-98.0); Mean Platelet Volume 9.4 fL (9.4-12.4); Monocytes Absolute Auto 1.1 X10*3/uL (0.1-1.2); Neutrophils Absolute Auto 6.8 x10*3/uL (2.0-8.3); Neutrophils Percent Auto 51.7 % (45-73); Platelet Count 214 X10*3/uL (160-400); Red Blood Count 5.32 X10*6/uL (4.60-5.80); Red Cell Distribution Width 13.5 % (11.0-16.0); White Blood Count 13.2 X10*3/uL (4.8-10.8)
[2022-10-20 14:12] LABS: COVID-19 Test Negative (Negative); IDNOW Serial# 6674DD1D
[2022-10-20 14:15] LABS: IDNOW Serial# 55D5AD1C; Influenza A Negative (Negative); Influenza B2 Negative (Negative)
[2022-10-20 14:23] LABS: Alanine Aminotransferase 20 U/L (0-40); Albumin Level 3.9 g/dL (3.5-5.0); Alkaline Phosphatase 88 U/L (39-117); Anion Gap 13 (12-20); Aspartate Amino Transferase 12 U/L (5-37); Bilirubin Total 0.3 mg/dL (0.0-1.0); Blood Urea Nitrogen 11 mg/dL (9-16); Calcium 8.8 mg/dL (8.4-10.2); Carbon Dioxide 38 mmol/L (22-29); Chloride 100 mmol/L (96-108); Creatinine Clr Calc Pharmacy 128.4; Estimated Glomerular Filt Rate > 60; Glucose Random 136 mg/dL (60-115); Potassium 3.8 mmol/L (3.3-5.1); Sodium 147 mmol/L (135-145); Total Protein 6.7 g/dL (6.5-8.0)
[2022-10-20 14:25] LABS: Magnesium 2.1 mg/dL (1.6-2.6)
[2022-10-20 14:32] LABS: Troponin-I High Sensitivity 5.3 ng/L (<3.5-35.0)
[2022-10-20] MEDS: methylPREDNISolone Sod Succ 125 MG/2 ML VIAL IVPUSH (15:05)
== END 2022-10-20 17:18 | disposition home or self-care (01) ==
PROVIDERS: Nurse Practitioner Family; Emergency Provider Emergency Medicine; PCP Internal Medicine
DX: J44.1 Chronic obstructive pulmonary disease with (acute) exacerbation (principal); R06.02 Shortness of breath; Z20.822 Contact with and (suspected) exposure to COVID-19; Z20.828 Contact with and (suspected) exposure to other viral communicable diseases; Z79.899 Other long term (current) drug therapy
CPT/HCPCS: 36415; 71046; 80053; 83735; 84484; 85025; 87502; 87635; 93005; 94640; 96374; 99284; 99285; J2930

== ENCOUNTER 2022-11-15 08:36 | Outpatient (REF) | payer MEDICARE, SELFPAY ==
--- NOTE | ~2022-11-15 | XR_ITS ---
EXAMINATION: XR LUMBOSACRAL SPINE CLINICAL INFORMATION: M54.50 - Low back pain, unspecified COMPARISON: MR lumbar spine 04/24/2013 TECHNIQUE: Three views of the lumbosacral spine. FINDINGS: There is normal lumbar segmentation with 5 nonrib-bearing lumbar vertebrae of normal height and normal lumbar lordosis. There is no lumbar vertebral compression or destructive process. There are interval progressive degenerative disc changes, greatest at L5-S1 with disc narrowing and mild endplate sclerosis and vertebral spurring. There is also mild disc narrowing at L3-L4 and L4-L5 and anterior vertebral spurring at all 5 levels. There is a borderline spondylolisthesis. L5-S1. MRI exam notes bilateral L5 spondylolysis. The SI joints and visualized sacrum are unremarkable. XR/XR lumbar spine 2-3V IMPRESSION: 1. Multilevel degenerative disc changes, greatest at L5-S1. 2. Borderline spondylolisthesis L5-S1. Bilateral L5 spondylolysis better appreciated on MR. 3. No vertebral compression or destructive process.
[2022-11-15 08:51] LABS: MANUAL DIFF FLAG NO
[2022-11-15 09:20] LABS: Basophils Absolute Auto 0.1 X10*3/uL (0.0-0.2); Basophils Percent Auto 0.8 % (0-2); Eosinophils Absolute Auto 0.5 X10*3/uL (0.0-0.4); Hemoglobin 16.2 g/dl (14.0-18.0); Imm Gran Abs Auto 0.07 X10*3/uL (0.00-0.03); Imm Gran Pct Auto 0.8 % (0.0-0.4); Lymphocytes Percent Auto 31.9 % (20-40); Mean Corpuscular HGB Conc 32.4 g/dl (31.0-36.0); Mean Corpuscular Hemoglobin 30.7 pg (27.0-33.0); Mean Corpuscular Volume 94.9 fL (80.0-98.0); Mean Platelet Volume 10.1 fL (9.4-12.4); Monocytes Absolute Auto 0.8 X10*3/uL (0.1-1.2); Monocytes Percent Auto 8.3 % (2-11); Neutrophils Percent Auto 53.2 % (45-73); Platelet Count 225 X10*3/uL (160-400); Red Blood Count 5.27 X10*6/uL (4.60-5.80); Red Cell Distribution Width 13.3 % (11.0-16.0); White Blood Count 9.3 X10*3/uL (4.8-10.8)
[2022-11-15 10:07] LABS: Alanine Aminotransferase 22 U/L (0-40); Albumin Level 4.1 g/dL (3.5-5.0); Alkaline Phosphatase 70 U/L (39-117); Anion Gap 10 (12-20); Aspartate Amino Transferase 17 U/L (5-37); Bilirubin Total 0.2 mg/dL (0.0-1.0); Blood Urea Nitrogen 12 mg/dL (9-16); Calcium 9.4 mg/dL (8.4-10.2); Carbon Dioxide 33 mmol/L (22-29); Chloride 103 mmol/L (96-108); Cholesterol 194 mg/dL; Estimated Glomerular Filt Rate > 60; Glucose Fasting 140 mg/dL (60-99); HDL Cholesterol 39 mg/dL; LDL Cholesterol Calculated 112 mg/dl; Potassium 4.2 mmol/L (3.3-5.1); Sodium 142 mmol/L (135-145); Total Protein 6.5 g/dL (6.5-8.0); Triglycerides 215 mg/dL
[2022-11-15 10:24] LABS: Prostate Specific Antigen Scr 0.72 ng/mL (<0.05-4.0); TSH reflex Free T4 1.09 uIU/mL (0.32-4.0); Vitamin D 25-OH Total 10.5 ng/mL (>30)
== END 2022-11-15 08:37 | disposition home or self-care (01) ==
LOC: HO.XRAY 08:36
PROVIDERS: PCP Internal Medicine; Visit Provider Internal Medicine
DX: Z00.00 Encounter for general adult medical examination without abnormal findings (principal); E55.9 Vitamin D deficiency, unspecified; E78.00 Pure hypercholesterolemia, unspecified; M54.50 Low back pain, unspecified; I10 Essential (primary) hypertension; Z12.5 Encounter for screening for malignant neoplasm of prostate
CPT/HCPCS: 36415; 72100; 80053; 80061; 82306; 84153; 84443; 85025

== ENCOUNTER 2023-01-05 13:36 | Outpatient (REF) | payer MEDICARE, SELFPAY ==
--- NOTE | ~2023-01-05 | CT_ITS ---
EXAMINATION: CT CHEST SCREENING CLINICAL INFORMATION: Nicotine dependence. One pack per day for 43 years. COMPARISON: Chest x-ray 10/20/2022. TECHNIQUE: Multidetector volumetric CT imaging of the chest is performed without contrast using low dose technique. Additional 2D coronal and sagittal reformatted images and axial 3D maximum intensity projection (MIP) images are generated on the CT workstation. This CT examination was performed using dose optimization techniques as appropriate, variously including the following: *Automated exposure control *Adjustment of mA and/or kV according to patient size (this includes techniques or standardized protocols for targeted exams where dose is matched to indication/reason for exam; i.e. extremities or head) *Use of iterative reconstruction technique DLP: 78 mGy-cm FINDINGS: LUNGS: There is centrilobular emphysema with prominence of interstitium in left lower lobe posterior basal and medial basal segments likely focal atelectasis or scarring. No pulmonary nodules, mass or groundglass density MEDIASTINUM: The thyroid lobes are symmetric and normal. The central trachea and the bronchi are widely patent. The heart size and the great vessels are normal caliber. No abnormal-size mediastinal or hilar lymph node seen. No pericardial effusion. CORONARY ARTERY CALCIFICATION: None visualized on this study. PLEURA: There is no pleural effusion. No pleural mass or thickening. AXILLA: Small shotty lymph nodes in the axilla. UPPER ABDOMEN: Visualized liver, spleen, pancreas and left adrenal gland is unremarkable. 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 OSSEOUS STRUCTURES: No gross lytic or sclerotic process seen. CT/CT lung screening IMPRESSION: Mild prominence of interstitium in the left lower lobe posterior basal and medial basal segments likely focal atelectasis or scarring. No pulmonary nodules seen. ASSESSMENT: Lung-RADS category 2: Benign. RECOMMENDATION: Low-dose annual CT chest.
== END 2023-01-05 13:37 | disposition home or self-care (01) ==
LOC: HO.CT 13:36
PROVIDERS: PCP Internal Medicine; Visit Provider Physician Assistant Medical
DX: Z12.2 Encounter for screening for malignant neoplasm of respiratory organs (principal); F17.210 Nicotine dependence, cigarettes, uncomplicated
CPT/HCPCS: 71271; G0296

== ENCOUNTER → 2023-01-23 14:38 | Outpatient (BNVA) | payer MEDICARE, SELFPAY | PROVIDERS: PCP Internal Medicine; Visit Provider Nurse Practitioner Family | DX: M51.36 Other intervertebral disc degeneration, lumbar region (principal); M47.816 Spondylosis without myelopathy or radiculopathy, lumbar region; M43.17 Spondylolisthesis, lumbosacral region; G89.4 Chronic pain syndrome | CPT/HCPCS: 99202 ==

== ENCOUNTER → 2023-02-05 15:47 | Outpatient (BNVA) | payer MEDICARE, SELFPAY | PROVIDERS: PCP Internal Medicine; Visit Provider Internal Medicine | DX: J44.9 Chronic obstructive pulmonary disease, unspecified (principal); G47.33 Obstructive sleep apnea (adult) (pediatric); J30.9 Allergic rhinitis, unspecified; R09.02 Hypoxemia; D75.1 Secondary polycythemia; F17.210 Nicotine dependence, cigarettes, uncomplicated; Z79.899 Other long term (current) drug therapy; Z99.81 Dependence on supplemental oxygen | CPT/HCPCS: 99212 ==

== ENCOUNTER 2023-04-23 10:24 | Outpatient (AMB) | payer MEDICARE, SELFPAY ==
[2023-04-23 10:28] VITALS: BP 128/72; PULSE 82; O2SAT 96; BMI 33.3
--- NOTE | 2023-04-23 10:28 | MHC.PC.OV ---
Vital Signs 04/23/23 10:28 Height 5 ft 10 in Weight 232 lb BMI 33.3 BP 128/72 Blood Pressure Location Lt brachial Position Sitting Pulse 82 Pulse Source Pulse Oximeter Pulse Oximetry (%) 96 Oxygen Delivery Method Nasal Cannula Intake Visit Reasons: COPD, DM, hyperlipidemia, HTN, lumbar DDD Allergies bacitracin [Bacitracin] Allergy (Unknown, Verified 04/23/23 11:01) REDNESS AND RASH lithium [[place]] Allergy (Unknown, Verified 04/23/23 11:01) UNKNOWN Sulfa (Sulfonamide Antibiotics) Allergy (Unknown, Verified 04/23/23 11:01) Unknown Medication List - Last Reconciled 04/23/23 by Imtiaz Saucedo MD albuterol sulfate 90 mcg/actuation (Ventolin HFA) 2 puffs inhalation .4 times a day PRN atorvastatin 10 mg PO BEDTIME 90 days baclofen 20 mg PO TID PRN 30 days Breo Ellipta 200-25 mcg/dose (fluticasone furoate-vilanterol) 1 inh inhalation DAILY NS cholecalciferol (vitamin D3) 50 mcg PO DAILY 90 days clonazepam 1 mg PO TID PRN 30 days clonidine HCl 0.2 mg PO BID PRN gabapentin 400 mg PO TID 30 days hydroxyzine HCl 100 mg (2 x 50 mg) PO BEDTIME ipratropium-albuterol 0.5 mg-3 mg(2.5 mg base)/3 mL 3 mL inhalation Q6-8H PRN 30 days metformin 500 mg PO BID 30 days theophylline ER 300 mg PO Q12H tiotropium bromide 2.5 mcg/actuation (Spiriva Respimat) 2 puffs inhalation DAILY topiramate 50 mg PO BEDTIME tramadol 50 mg PO TID PRN 30 days trazodone 450 mg (3 x 150 mg) PO BEDTIME venlafaxine 75 mg PO DAILY Tobacco use date assessed: 11/17/22 Dental Screening Dental Screen Date: 04/23/23 Did you have a dental visit in the last 12 months?: Yes Did you have a dental problem in the last 6 months where you did not have access to dental care?: No Was dental information given to patient?: Patient has dentist HPI COPD, DM, hyperlipidemia, HTN, lumbar DDD HPI Details Patient comes in today for his HDF follow up visit Was admitted to [facility] for a few days last month for COPD exacerbation and hypoxia/hypercapnea States that he currently feels okay and that his breathing has since improved back to his baseline since he was discharged home a couple of weeks ago; is currently on oxygen at 3 LPM Relates that he has been experiencing on and off headaches as well as dizziness lately Denies any chest pains No nausea/vomiting, no abdominal pain No change in bowel habits noted States that his low back pain and joint pains remain adequately controlled on his current Rx States that he had a lot of blood tests done when he was at the hospital a few weeks ago so he did not get any other follow up labs done lately FOR[facility] Medical History (Updated 04/23/23 @ 12:48 by Imtiaz Saucedo MD) Allergic rhinitis Amputation of finger of left hand Anxiety COPD (chronic obstructive pulmonary disease) Depression Diabetes mellitus Essential tremor Hyphemia Hypoxemia Impaired fasting glucose Insomnia Lumbar degenerative disc disease Migraine Mixed hyperlipidemia Nicotine dependence, cigarettes, uncomplicated Nocturnal hypoxemia Obesity (BMI 30-39.9) Obstructive sleep apnea Polycythemia Vitamin D deficiency Surgical History History of cervical discectomy History of medial meniscus repair of left knee History of vasectomy Family History Father No problems noted. Mother No problems noted. Brother Pancreatic cancer Sister Breast cancer Ovarian cancer Social History Housing: Apartment Alcohol intake: never Patient Tobacco Use Status: Former Tobacco user Tobacco use type: Cigarette Cigarette Packs Per Day: 1 Cigarettes Per Day: 15 Years Smoked: current smoker - onset 11yo, max 2ppd, now 3/4ppd - 60+PYH e-Cigarette/Vaping Use: Never Used Second Hand Smoke Exposure: Yes Substance Use Type: Crack/Cocaine service: No Current occupational status: disabled Cognitive needs: Yes (cane) Hearing needs: No Vision needs: No Questionnaire PHQ-9 Over the last 2 weeks, how often have you been bothered by any of the following problems? 1. Little interest or pleasure in doing things: nearly every day 2. Feeling down, depressed, or hopeless: nearly every day 3. Trouble falling or staying asleep, or sleeping too much: nearly every day 4. Feeling tired or having little energy: nearly every day 5. Poor appetite or overeating: more than half the days 6. Feeling bad about yourself - or that you are a failure or have let yourself or your family down: several days 7. Trouble concentrating on things, such as reading the newspaper or watching television: more than half the days 8. Moving or speaking so slowly that other people could have noticed. Or the opposite - being so fidgety or restless that you have been moving around a lot more than usual: several days 9. Thoughts that you would be better off or of hurting yourself in some way: not at all Total score: 18 Depression Screening Interpretation: Positive Depression Screening Follow-up: Existing condition and In treatment 05282 - PHQ-9 Billing: Yes Source: Developed by Drs. Alexander Cuadra, Kailyn Ruelas, Cornel Philip and colleagues, with an educational arnold from [employer]. Thrive Questionnaire Date Thrive assessed: 11/17/22 AUDIT C Alcohol Use Questionnaire (AUDIT-C) 1. How often do you have a drink containing alcohol?: Never 3. How often do you have six or more drinks on one occasion?: Never Total Score: 0 Score Reviewed/Action Taken: Yes BIRGIT-7 AMB Questionnaire BIRGIT-7 Date BIRGIT - 7 assessed: 11/17/22 Source: Developed by Drs. Alexander Cuadra, Kailyn Ruelas, Cornel Philip and colleagues, with an educational arnold from [employer]. Review of Systems Const Reports difficulty sleeping, Reports fatigue, Denies fever(s) and Reports headache(s) (on and off) ENT Denies dysphagia, Reports dizziness (on and off lately), Denies otalgia, Reports headache(s) (on and off), Reports neck pain (chronic) and Denies sore throat Card Denies chest pain, Denies palpitations and Reports dyspnea on exertion (is on oxygen via nasal cannula) Resp Reports chest congestion (at times), Reports cough (on and off), Reports excessive phlegm production (coughs up thick whitish phlegm), Reports dyspnea on exertion (is on oxygen via nasal cannula) and Denies wheezing GI Denies abdominal pain, Denies constipation, Denies dysphagia, Denies heartburn, Denies diarrhea, Denies nausea and Denies vomiting Denies dysuria, Reports nocturia and Reports urinary frequency Musc Reports back pain (over the lumbar spine - chronic but increasing lately), Reports arthralgias and Reports neck pain (chronic) Neuro Reports dizziness (on and off lately) and Reports headache(s) (on and off) Psych Reports anxiety (getting worse lately despite Rx) and Reports depression Endo Reports fatigue and Denies palpitations Aller/Immun Denies wheezing Physical exam (Primary Care) Vital Signs: Last Vital Signs Pulse 82 04/23/23 10:28 BP 128/72 04/23/23 10:28 Pulse Ox 96 04/23/23 10:28 Oxygen Delivery Method Nasal Cannula 04/23/23 10:28 BMI result Body Mass Index 33.3 Tobacco/Smoking Status: Tobacco use Status Tobacco use date assessed 11/17/22 04/23/23 10:29 Patient Tobacco Use Status Former Tobacco user 04/23/23 10:37 Tobacco use type Cigarette 04/23/23 10:29 e-Cigarette/Vaping Use Never Used 04/23/23 10:29 PHQ-9: PHQ-9 Score PHQ-9: Total score 18 04/23/23 11:01 Depression Screening Interpretation: Positive Depression Screening Follow-up: Existing condition and In treatment Thrive Assessment: Date of Thrive Assessment Date Thrive assessed 11/17/22 04/23/23 10:29 Const General: no acute distress, alert and tired appearing (is on oxygen via nasal cannula) HENMT Ears: TM's normal bilaterally and EAC's normal Throat: Yes posterior oropharynx normal and Yes tonsils normal (no TP congestion) Neck Neck: Yes no lymphadenopathy and Yes supple Thyroid: Thyroid normal Resp Auscultation: no rales, rhonchi (scattered), no wheezes and diminished lung sounds bilateral Cardio Rate: regular rate Rhythm: regular rhythm Heart sounds: no murmurs GI Palpation (GI): Soft to palpation and nontender Auscultation: normal bowel sounds Back/Spine/Pelvis Cervical Spine: Cervical spine tenderness Thoracic/Lumbar Spine: lumbar spinal tenderness (increased lately) Skin General skin exam: lichenification ((+) extensive scattered lichenified plaque-like lesions on the torso) Extrem General: Yes no clubbing, cyanosis or edema Results AMB Hemoglobin A1c AMB Hemoglobin A1c 5.9 % Last Edit by Laura Booker CMA on 04/23/23 10:42 Results Reviewed Results Reviewed: Laboratory Last Values Hgb A1c (Clinic) 5.9 % (4.0-6.0) 04/23/23 10:29 Assessment and Plan Assessment & Plan (1) COPD (chronic obstructive pulmonary disease): Code(s): J44.9 - Chronic obstructive pulmonary disease, unspecified Qualifiers: COPD type: unspecified COPD Qualified Code(s): J44.9 - Chronic obstructive pulmonary disease, unspecified Plan: Is currently on oxygen inhalation at 3 LPM via nasal cannula Was admitted to [facility] for a few days last month for COPD exacerbation/hypoxia/hypercapnea Continue Flovent HFA 110 mcg 2 inhalations BID and Albuterol HFA 2 inhalations every 6 hours as needed OR Duoneb 0.5 mg - 3 mg updrafts 3 ml every 6 hours as needed; is also on Theophylline ER 300 mg Q 12 hours Follow up with pulmonary (Dr. Leach) as scheduled - is being seen by Dr. Leach regularly every 3 months (2) Lumbar degenerative disc disease: Code(s): M51.36 - Other intervertebral disc degeneration, lumbar region Plan: Reinforced activity and weight-lifting restrictions Repeat lumbar spine x-rays done a few months ago revealed (+) multilevel degenerative disc changes, greatest at L5-S1; borderline spondylolisthesis L5-S1 and bilateral L5 spondylolysis better appreciated on MR. No vertebral compression or destructive process. Continue Baclofen 20 mg TID PRN, Gabapentin 400 mg TID and Tramadol 50 mg TID PRN for increased pain He was also referred back to pain management a few months ago - was seen in January 2023 and advised to start off with a trial of PT Follow up with pain management as scheduled (3) Mixed hyperlipidemia: Code(s): E78.2 - Mixed hyperlipidemia Plan: Patient did not get his follow up labs done as he's had several labs drawn when he was admitted to [facility] last month Reinforced low cholesterol diet Continue Atorvastatin 10 mg QD Will recheck his labs and fasting lipids in 3 months for follow up (4) Diabetes mellitus: Code(s): E11.9 - Type 2 diabetes mellitus without complications Qualifiers: Diabetes mellitus type: type 2 Diabetes mellitus emt intermediate insulin use: without penitentiary use Diabetes mellitus complication status: without complication Qualified Code(s): E11.9 - Type 2 diabetes mellitus without complications Plan: In-office HgbA1c done today is at 5.9% (was at 6.8% a few months ago) - goal is at least <7.0% Reinforced diabetic diet Continue Metformin 500 mg BID (5) Migraine: Code(s): G43.909 - Migraine, unspecified, not intractable, without status migrainosus Qualifiers: Migraine type: unspecified Status migrainosus presence: without status migrainosus Intractability: not intractable Qualified Code(s): G43.909 - Migraine, unspecified, not intractable, without status migrainosus Plan: Reports (+) on and off headaches and dizziness - is not sure if Topiramate is causing his dizziness or not Continue Topiramate 50 mg Q HS for now for prophylactic Tx but is advised to call if his symptoms get worse Reinforced avoidance of migraine triggers Follow up with neurology as scheduled (6) Essential tremor: Code(s): G25.0 - Essential tremor Plan: Follow up with neurology as scheduled (7) Obstructive sleep apnea: Comment: BRIGETTE severe - RDI 134 on 07/14/2008 sleep test - AFTER IS LAST VISIT HERE HE DID GET HIS CPAP. HE HAS USE IN DID REGULARLY BUT FREQUENTLY WAKING UP AND SMOKING CIGARETTES WE COULD NOT DOWNLOAD THE COMPLIANCE DATA. Code(s): G47.33 - Obstructive sleep apnea (adult) (pediatric) Plan: Follow up with pulmonary/sleep medicine as scheduled Is currently being scheduled for a repeat sleep study to reassess his requirements and continuing need to use his CPAP device when sleeping at night (8) Vitamin D deficiency: Code(s): E55.9 - Vitamin D deficiency, unspecified Plan: Continue Vitamin D3 2000 units QD (9) Allergic rhinitis: Comment: This is chronic, mild, advised to use Flonase 2 spray in each nostril p.r.n.. Code(s): J30.9 - Allergic rhinitis, unspecified Qualifiers: Allergic rhinitis trigger: unspecified Allergic rhinitis seasonality: unspecified Qualified Code(s): J30.9 - Allergic rhinitis, unspecified Plan: Continue Fluticasone 50 mcg nasal spray QD PRN (10) Lichen planus: Code(s): L43.9 - Lichen planus, unspecified Plan: Follow up with dermatology as scheduled (11) Insomnia: Comment: As part of his chronic anxiety syndrome he has chronic insomnia. Currently on large dose of trazodone, but still having difficulty in sleeping. Hopefully once we start him on CPAP therapy again he will be able to sleep better. Code(s): G47.00 - Insomnia, unspecified Qualifiers: Insomnia type: primary Qualified Code(s): F51.01 - Primary insomnia Plan: Sleep hygiene reinforced Continue Trazodone 150 mg 3 tablets Q HS (12) Anxiety: Code(s): F41.9 - Anxiety disorder, unspecified Plan: Continue Clonidine 0.2mg BID PRN, Hydroxyzine 50 mg 2 tablets Q HS and Clonazepam 1 mg TID PRN (13) Depression: Code(s): F32.9 - Major depressive disorder, single episode, unspecified Qualifiers: Depression Type: major depressive disorder Major depression recurrence: recurrent Active/Remission status: currently active Major depression episode severity: unspecified Qualified Code(s): F33.9 - Major depressive disorder, recurrent, unspecified Plan: Continue Venlafaxine 75 mg QD Follow up with psychiatry as scheduled (14) Smoker: Comment: Long-time smoker, Counseled to quit smoking and for the time being at least cut down to half pack a day. This gentleman has not been able to cut down or stop smoking. He does not want to use nicotine products. Code(s): F17.200 - Nicotine dependence, unspecified, uncomplicated Plan: Counseled again on smoking cessation (15) Obesity (BMI 30-39.9): Comment: Patient is chronically obese, does not have much incentive to lose weight. I counseled him about diet, cut down the calories and especially cut down the carbohydrates. Do walk on a daily basis. Code(s): E66.9 - Obesity, unspecified Plan: Reinforced diet; exercise and weight loss are not realistic given patient's advanced COPD, low back pain and poor activity tolerance and overall health Plan Follow up in 3 months Orders: Orders Complete Blood Count Auto Diff 3 Months I10 - Essential (primary) hypertension Comprehensive [place]. Panel Fast 3 Months E78.00 - Pure hypercholesterolemia, unspecified Lipid Panel 3 Months E78.00 - Pure hypercholesterolemia, unspecified Hemoglobin A1c 3 Months E11.9 - Type 2 diabetes mellitus without complications TSH reflex Free T4 3 Months E78.00 - Pure hypercholesterolemia, unspecified UA CC w/rflx Micro + Cult 3 Months R30.0 - Dysuria Vitamin D 25-OH Total 3 Months E55.9 - Vitamin D deficiency, unspecified AMB Hemoglobin A1c Today Z13.9 - Encounter for screening, unspecified Coding Level of Care Code Est Pt Level 4 (54405) Diagnoses COPD (chronic obstructive pulmonary disease) J44.9 COPD type: unspecified COPD Lumbar degenerative disc disease M51.36 Mixed hyperlipidemia E78.2 Diabetes mellitus E11.9 Diabetes mellitus type: type 2 Diabetes mellitus emt intermediate insulin use: without emt intermediate use Diabetes mellitus complication status: without complication Migraine G43.909 Migraine type: unspecified Status migrainosus presence: without status migrainosus Intractability: not intractable Essential tremor G25.0 Obstructive sleep apnea G47.33 Vitamin D deficiency E55.9 Allergic rhinitis J30.9 Allergic rhinitis trigger: unspecified Allergic rhinitis seasonality: unspecified Lichen planus L43.9 Insomnia F51.01 Insomnia type: primary Anxiety F41.9 Depression F33.9 Depression Type: major depressive disorder Major depression recurrence: recurrent Active/Remission status: currently active Major depression episode severity: unspecified Smoker F17.200 Obesity (BMI 30-39.9) E66.9
== END 2023-04-23 11:16 | disposition home or self-care (01) ==
PROVIDERS: PCP Internal Medicine; Visit Provider Internal Medicine
DX: E11.9 Type 2 diabetes mellitus without complications (principal)
CPT/HCPCS: 83036; 99214